=== PATIENT | female | born 1985 | race Caucasian/White ===

== ENCOUNTER 2020-06-07 22:05 | Outpatient (CLI) | payer MEDICAID ==
[~2020-06-07] VITALS: Ht 149.9 cm; Wt 84.1 kg
[2020-06-07 22:35] LABS: MICROSCOPIC NOT IND
[2020-06-07] MEDS ORDERED: PREN1TAB60 PO (22:36)
[2020-06-07] MEDS ORDERED: Vitamin D PO (22:36)
[2020-06-07 22:37] VITALS: BP 97/50
== END 2020-06-07 23:47 | disposition home or self-care (01) ==
LOC: LDOP 22:05
PROVIDERS: ATTEND Student in an Organized Health Care Education/Training Program
DX: O09.92 Supervision of high risk pregnancy, unspecified, second trimester (principal); O42.912 Preterm premature rupture of membranes, unspecified as to length of time between rupture and onset of labor, second trimester; Z3A.25 25 weeks gestation of pregnancy
CPT/HCPCS: 81003; 84112; 99211; G0463

== ENCOUNTER 2020-08-14 11:59 | Outpatient (CLI) | payer MEDICAID ==
[~2020-08-14] VITALS: Ht 149.9 cm; Wt 90.5 kg
[~2020-08-14 11:59] MED LIST: PREN1TAB60 PO; Vitamin D PO
[2020-08-14 12:43] VITALS: BP 112/66
== END 2020-08-14 13:07 | disposition home or self-care (01) ==
LOC: LDOP 11:59
PROVIDERS: ATTEND Student in an Organized Health Care Education/Training Program
DX: O42.913 Preterm premature rupture of membranes, unspecified as to length of time between rupture and onset of labor, third trimester (principal); Z3A.34 34 weeks gestation of pregnancy
CPT/HCPCS: 59025; 84112

== ENCOUNTER 2020-09-12 05:31 | Inpatient (IN) | payer MEDICAID ==
[~2020-09-12] VITALS: Ht 149.9 cm; Wt 93.0 kg
[2020-09-12] MEDS ORDERED: SODIUM CITRATE/CITRIC ACID 30 ML UDC PO ONE (06:00)
[2020-09-12] MEDS ORDERED: METOCLOPRAMIDE 5 MG/ML, 2ML IV ONE (06:00)
[2020-09-12] MEDS ORDERED: LACTATED RINGERS 1,000 ML IVBOLUS ONE (06:00)
[2020-09-12] MEDS ORDERED: ONDANSETRON 2MG/ML, 2ML IVPush ONE (06:00)
[2020-09-12 06:15] LABS: BASOPHILS % (AUTO) 1 % (0-1); EOSINOPHILS % (AUTO) 1 % (1-7); LYMPHOCYTES % (AUTO) 16 % (22-44); MEAN CORPUSCULAR HEMOGLOBIN 30.9 pg (27.0-34.8); MEAN CORPUSCULAR HGB CONC 33.8 g/dL (32.4-35.8); MEAN PLATELET VOLUME 9.2 fL (7.4-10.4); MONOCYTES % (AUTO) 7 % (2-9); NEUTROPHILS % (AUTO) 76 % (42-75); PLATELET COUNT 219 x10^3/uL (130-400); RED BLOOD COUNT 4.11 x10^6/uL (3.82-5.3); RED CELL DISTRIBUTION WIDTH 13.2 % (9.6-15.2)
[2020-09-12 06:26] VITALS: BP 117/59
[2020-09-12 06:31] LABS: MD NO
[2020-09-12] MEDS ORDERED: METOCLOPRAMIDE 5 MG/ML, 2ML ONE (06:39)
[2020-09-12] MEDS ORDERED: OXYTOCIN 30U/ 0.9% NaCL 500ML 500 ML ONE (06:40)
[2020-09-12] MEDS ORDERED: EPHEDRINE 50 MG/ML, 1ML ONE (07:17)
[2020-09-12] MEDS ORDERED: KETOROLAC 30 MG/1 ML ONE (07:17)
[2020-09-12] MEDS ORDERED: FENTANYL PF 100 MCG/2ML ONE (07:17)
[2020-09-12] MEDS ORDERED: CEFAZOLIN 1,000 MG ONE (07:17)
[2020-09-12] MEDS ORDERED: OXYTOCIN 10 UNITS/ML, 1ML ONE (07:17)
[2020-09-12] MEDS ORDERED: DEXAMETHASONE 4 MG/ML, 1ML ONE (07:17)
[2020-09-12] MEDS ORDERED: PHENYLEPHRINE 10 MG/ML ONE (07:17)
[2020-09-12] MEDS ORDERED: ONDANSETRON 2MG/ML, 2ML ONE (07:17)
[2020-09-12] MEDS: LACTATED RINGERS 1,000 ML IV SCH ×7 (07:25→23:00)
[2020-09-12] MEDS ORDERED: EPHEDRINE 50 MG/ML, 1ML IVPush PRN (07:30)
[2020-09-12] MEDS ORDERED: HYDROmorphone 2 MG/ML, 1ML IVPush PRN (07:30)
[2020-09-12] MEDS ORDERED: OXYcodone 5 MG/5 ML ORAL.SOL UDC PO PRN (07:30)
[2020-09-12] MEDS ORDERED: ONDANSETRON 2MG/ML, 2ML IVPush PRN (07:30)
[2020-09-12] MEDS ORDERED: ALBUTEROL SULFATE 2.5 MG/3 ML NPPB PRN (07:30)
[2020-09-12] MEDS ORDERED: MEPERIDINE/PF 25MG/0.5ML IVPush PRN (07:30)
[2020-09-12] MEDS ORDERED: HYDROcodone/APAP 7.5-325MG/15ML UDC PO PRN (07:30)
[2020-09-12] MEDS ORDERED: hydrALAzine 20 MG/ML, 1ML IV PRN (07:30)
[2020-09-12] MEDS ORDERED: LABETALOL 5MG/ML, 20ML IV PRN (07:30)
[2020-09-12] MEDS ORDERED: MIDAZOLAM 1 MG/ML, 2ML IV PRN (07:30)
[2020-09-12] MEDS ORDERED: PROMETHAZINE 25 MG/ML, 1ML IV PRN (07:30)
[2020-09-12] MEDS ORDERED: METOPROLOL 1 MG/ML, 5ML IV PRN (07:30)
[2020-09-12] MEDS ORDERED: FENTANYL PF 100 MCG/2ML IV PRN (07:30)
[2020-09-12] MEDS ORDERED: HYDROmorphone 2 MG/ML, 1ML ONE (07:57)
[2020-09-12 11:29] VITALS: BP 94/60
[2020-09-12] MEDS: OXYcodone IR 5MG TABLET PO PRN ×3 (12:57→22:46)
[2020-09-12] MEDS: OXYTOCIN 30U/ 0.9% NaCL 500ML 500 ML IV SCH ×2 (13:00→23:00)
[2020-09-12] MEDS ORDERED: SIMETHICONE 80 MG CHEW TAB PO PRN (13:00)
[2020-09-12] MEDS: KETOROLAC 30 MG/1 ML IM SCH ×2 (13:00→21:06)
[2020-09-12] MEDS ORDERED: METHYLERGONOVINE 0.2 MG/ML IM PRN (13:00)
[2020-09-12] MEDS ORDERED: OXYcodone IR 5MG TABLET PO PRN (13:00)
[2020-09-12] MEDS ORDERED: ACETAMINOPHEN 325 MG TABLET PO PRN (13:00)
[2020-09-12] MEDS ORDERED: MISOPROSTOL 200 MCG TABLET PO PRN (13:00)
[2020-09-12] MEDS ORDERED: ONDANSETRON 2MG/ML, 2ML IV PRN (13:00)
[2020-09-12 15:50] VITALS: BP 113/70
[2020-09-12 19:30] VITALS: BP 111/68
[2020-09-12 21:23] LABS: MEAN CORPUSCULAR HGB CONC 33.8 g/dL (32.4-35.8); MEAN PLATELET VOLUME 9.3 fL (7.4-10.4); PLATELET COUNT 184 x10^3/uL (130-400); RED CELL DISTRIBUTION WIDTH 13.2 % (9.6-15.2)
[2020-09-12 22:05] LABS: MD SCAN
[2020-09-12] MEDS: DOCUSATE 100 MG CAPSULE PO PRN (22:46)
[2020-09-13 00:15] VITALS: BP 101/63
[2020-09-13] MEDS: KETOROLAC 30 MG/1 ML IM SCH ×3 (03:02→15:00)
[2020-09-13] MEDS: OXYcodone IR 5MG TABLET PO PRN ×5 (03:31→21:16)
[2020-09-13 04:10] VITALS: BP 98/66
[2020-09-13] MEDS: LACTATED RINGERS 1,000 ML IV SCH ×7 (05:00→21:00)
[2020-09-13 07:15] VITALS: BP 103/64
[2020-09-13] MEDS: DOCUSATE 100 MG CAPSULE PO PRN ×2 (07:48→21:17)
[2020-09-13] MEDS: PRENATAL VIT/IRON/FA 1 EACH TABLET PO SCH (07:48)
[2020-09-13] MEDS: OXYTOCIN 30U/ 0.9% NaCL 500ML 500 ML IV SCH ×2 (09:00→19:00)
[2020-09-13 12:03] VITALS: BP 103/71
[2020-09-13] MEDS: IBUPROFEN 800 MG TABLET PO PRN (15:15)
[2020-09-13 19:50] VITALS: BP 107/69
[2020-09-14] MEDS: IBUPROFEN 800 MG TABLET PO PRN ×2 (01:11→08:35)
[2020-09-14] MEDS: OXYcodone IR 5MG TABLET PO PRN ×4 (01:11→14:56)
[2020-09-14 07:10] VITALS: BP 100/69
[2020-09-14] MEDS ORDERED: OXYC5TAB3 PO (07:31)
[2020-09-14] MEDS ORDERED: ACET325C6 PO ×2 (07:33→07:36)
[2020-09-14] MEDS ORDERED: IBUP-1222 PO (07:34)
[2020-09-14] MEDS ORDERED: DOCU-131 PO (07:37)
[2020-09-14] MEDS: DOCUSATE 100 MG CAPSULE PO PRN (08:59)
[2020-09-14] MEDS: PRENATAL VIT/IRON/FA 1 EACH TABLET PO SCH (08:59)
== END 2020-09-14 16:10 | disposition home or self-care (01) | DRG 784 ==
LOC: LDIP 05:31 → 2NW 10:41
PROVIDERS: ADMIT Student in an Organized Health Care Education/Training Program; ATTEND Student in an Organized Health Care Education/Training Program
PROC: 10D00Z1 Extraction of Products of Conception, Low, Open Approach (ICD-10-PCS; principal; 2020-09-12)
PROC: 0UT70ZZ Resection of Bilateral Fallopian Tubes, Open Approach (ICD-10-PCS; 2020-09-12)
DX: O34.211 Maternal care for low transverse scar from previous cesarean delivery (principal); D62 Acute posthemorrhagic anemia; O99.13 Other diseases of the blood and blood-forming organs and certain disorders involving the immune mechanism complicating the puerperium; Z20.828 Contact with and (suspected) exposure to other viral communicable diseases; O99.824 Streptococcus B carrier state complicating childbirth; Z3A.39 39 weeks gestation of pregnancy; Z37.0 Single live birth; Z30.2 Encounter for sterilization; Z80.0 Family history of malignant neoplasm of digestive organs; Z80.49 Family history of malignant neoplasm of other genital organs; Z80.6 Family history of leukemia; Z82.3 Family history of stroke; Z82.49 Family history of ischemic heart disease and other diseases of the circulatory system; Z83.3 Family history of diabetes mellitus; Z87.891 Personal history of nicotine dependence; Z91.19 Patient's noncompliance with other medical treatment and regimen; O90.81 Anemia of the puerperium; D72.828 Other elevated white blood cell count
CPT/HCPCS: 36415; 85025; 86592; 86850; 86900; 87635; 88302; G0378; J0690; J1100; J1170; J1885; J2405; J3010; J2370; J2590; J2765; J7120